=== PATIENT | female | born 1985 | race Asian ===

== ENCOUNTER → 2016-11-07 | Outpatient (CLI) | payer BC ==
[~2016-11-07] MED LIST: BCPILLS PO
== END | disposition home or self-care (01) ==
LOC: C.PAPS 15:38
PROVIDERS: ATTEND Obstetrics & Gynecology
DX: Z01.419 Encounter for gynecological examination (general) (routine) without abnormal findings (principal)

== ENCOUNTER → 2017-11-18 | Outpatient (CLI) | payer BC | END | disposition home or self-care (01) | LOC: C.LAB1850 16:01 | PROVIDERS: ATTEND Obstetrics & Gynecology | DX: Z31.69 Encounter for other general counseling and advice on procreation (principal) ==

== ENCOUNTER → 2017-11-18 | Outpatient (CLI) | payer BC | END | disposition home or self-care (01) | LOC: C.PAPS 10:38 | PROVIDERS: ATTEND Obstetrics & Gynecology | DX: Z01.419 Encounter for gynecological examination (general) (routine) without abnormal findings (principal) ==

== ENCOUNTER 2019-01-21 17:02 | Inpatient (IN) ==
[2019-01-21] MEDS ORDERED: OXYTOCIN 30 UNITS/500 ML BAG IV PRN ×2 (17:26)
--- NOTE | 2019-01-21 17:37 | History & Physical Report ---
Date of Service January 21, 2019 Assessment & Plan (1) SROM (spontaneous rupture of membranes): 33yo at 38.5 weeks GA. SROM. 1. Fetus: Cat 1 2. Labor: PROM. will start oxytocin per protocol. 3. GBS negative. 4. HEP B: Continue home meds 5. Vitals: WNL History of Present Illness Chief Complaint: SROM Primary Care Provider: NO PCP 33 yo at 38.6 weeks GA. Present with LOF. Denied VB, regular ctx. Good FM. course complicated by chronic hep B with 0 viral load, and prior LEEP procedure. Allergies Allergy/AdvReac Type Severity Reaction Status Date / Time No Known Allergies Allergy Unverified 12/15/10 07:20 Home Medications Home Medications Medication Instructions Recorded Confirmed Type Control Pills 1 tab PO DAILY #0 12/15/10 History None (Patient States No Home Meds) #0 12/15/10 History Physical Exam Genitourinary: OB Exam Abdomen: + vertex and + irregular contractions Manual OB Exam: + cervical dilation 2 cm, + cervical effacement 90%, + station - 2 and + amniotic fluid clear OB Exam Monitor Tracing: + external FHT monitor used, + external uterine monitor used and + category I Results & Data Vital Signs (Past 12 Hours) Vital Signs Pulse BP 01/21/19 17:10 79 114/79
[2019-01-21 17:51] LABS: Hematocrit (blood only) 38.3 % (37-47); Hemoglobin 13.6 g/dL (12.0-16.0); Mean Platelet Volume 8.8 fL (7.4-10.4); Platelet Count 279 K/uL (130-400); RDW Coefficient of Variation 13.2 % (11.5-14.5); RDW Standard Deviation 42.1 fL (36.4-46.3); White Blood Count 9.77 K/uL (4.8-10.8)
[2019-01-21] MEDS: LACTATED RINGER'S 1,000 ML IV PRN ×2 (18:07→21:55)
[2019-01-21 18:09] LABS: Mean Corpuscular Hgb Conc 35.5 g/dL (32-36)
--- NOTE | 2019-01-21 19:49 | Anesthesiology Consultation ---
Date of Service January 21, 2019 Assessment & Plan Chart Review Chart Review: Patient NOT seen in Pre Admission Testing and Acceptable Risk for Labor Epidural Consults Requested none ASA ASA2 Proposed Anesthesia Anesthesia Type: Labor Epidural and CSE Risk / Benefits Reviewed With: PT / POA / Parent / Guardian, Accepts Plan and Informed Consent Obtained History Height/Weight Height: 5 ft 2 in Weight: 83.007 kg Allergies Allergy/AdvReac Type Severity Reaction Status Date / Time No Known Allergies Allergy Verified 01/21/19 18:57 Medications Home Medications Medication Instructions Recorded Confirmed Last Taken vit-iron fum-folic ac 1 tab PO DAILY 01/21/19 01/21/19 01/20/19 20:00 [ Vitamin] Active Medications Generic Name Dose Route Start Last Admin Trade Name Freq PRN Reason Stop Dose Admin Lactated Ringer's 1,000 mls @ 125 mls/hr 01/21/19 17:26 01/21/19 18:07 Lr IV 01/23/19 17:25 125 mls/hr .Q8H PRN Administration L&D Protocol Protocol Oxytocin 30 units in 500 mls @ 4 mls/hr 01/21/19 17:26 01/21/19 18:40 Pitocin IV 01/23/19 17:25 0.24 units/hr .Q24H PRN 4 mls/hr Labor Induction/Augmentation Titration Protocol 0.24 UNITS/HR Past Medical History Medical History Asthma Chronic hepatitis B Exercise / Class Metabolic Activity II 4-5 Yardwork/Stairs/Walk up hill Past Surgical History Surgical History Status post wisdom tooth extraction Past Anesthesia History No Hx of Anesthesia Complications and No Family Hx of Anesthesia Complications Social History Smoking Status: Never smoker Do You Dip or Chew Tobacco: No Hx Alcohol Use: No Hx Substance Use: No substance use type: does not use Review of Systems no chest pain or sob Physical Exam Vital Signs Last Vital Signs Temp 36.8 C 01/21/19 17:18 Pulse 61 01/21/19 19:21 Resp 20 01/21/19 17:18 BP 121/78 01/21/19 19:21 ENMT Mouth: no TMJ abnormality Thyromental Distance: > or= 3.5 Finger Breadths Mallampati Class: II Neck normal visual inspection Respiratory normal respiratory effort Auscultation: lungs clear to auscultation bilaterally Cardiovascular Rate/Rhythm: regular rate and regular rhythm Musculoskeletal Spine: normal cervical ROM Neurologic moves all extremities Psychiatric Orientation: alert and oriented x 3
[2019-01-21] MEDS ORDERED: BUTORPHANOL TARTRATE 2 MG/ML VIAL IV PRN (20:23)
[2019-01-21] MEDS: [UNRECOGNIZED DRUG - OTHER] SCH (20:30)
[2019-01-21] MEDS ORDERED: fentaNYL citrate 100 MCG/2 ML VIAL ONE (21:19)
[2019-01-21] MEDS ORDERED: ePHEDrine sulfate 50 MG/ML AMP ONE (21:19)
[2019-01-21] MEDS ORDERED: BUPIVACAINE 0.25% 30 ML VIAL ONE (21:19)
[2019-01-21] MEDS ORDERED: fentaNYL 2MCG/ML ROPIV 1.25MG/ML 100 ML BAG EPI ONE (21:20)
--- NOTE | 2019-01-21 21:50 | Anesthesiology Consultation ---
Date of Service January 21, 2019 Assessment & Plan Chart Review Chart Review: Patient NOT seen in Pre Admission Testing and Acceptable Risk for Labor Epidural Consults Requested none ASA ASA2 Proposed Anesthesia Anesthesia Type: Labor Epidural and CSE Risk / Benefits Reviewed With: PT / POA / Parent / Guardian, Accepts Plan and Informed Consent Obtained History Height/Weight Height: 5 ft 2 in Weight: 83.007 kg Allergies Allergy/AdvReac Type Severity Reaction Status Date / Time No Known Allergies Allergy Verified 01/21/19 18:57 Medications Home Medications Medication Instructions Recorded Confirmed Last Taken vit-iron fum-folic ac 1 tab PO DAILY 01/21/19 01/21/19 01/20/19 20:00 [ Vitamin] tenofovir disoproxil fumarate 300 mg PO DAILY 01/21/19 01/21/19 01/21/19 20:00 Active Medications Generic Name Dose Route Start Last Admin Trade Name Freq PRN Reason Stop Dose Admin Butorphanol Tartrate 1 mg 01/21/19 20:23 01/21/19 20:31 Stadol IV 02/20/19 20:22 1 mg Q2R PRN Administration Pain Lactated Ringer's 1,000 mls @ 125 mls/hr 01/21/19 17:26 01/21/19 18:07 Lr IV 01/23/19 17:25 125 mls/hr .Q8H PRN Administration L&D Protocol Protocol Oxytocin 30 units in 500 mls @ 4 mls/hr 01/21/19 17:26 01/21/19 18:40 Pitocin IV 01/23/19 17:25 0.24 units/hr .Q24H PRN 4 mls/hr Labor Induction/Augmentation Titration Protocol 0.24 UNITS/HR Tenofovir Disoproxil 1 ea 01/21/19 20:00 01/21/19 20:30 : Non-Formulary N/A 02/20/19 19:59 300 mg Patient's Own Med DAILY NITO Administration NPO Date Last Intake of Fluids: 01/21/19 Time Last Intake of Fluids: 20:15 Date Last Intake of Solids: 01/21/19 Time Last Intake of Solids: 16:30 Past Medical History Medical History Asthma Chronic hepatitis B Exercise / Class Metabolic Activity II 4-5 Yardwork/Stairs/Walk up hill Past Surgical History Surgical History Status post wisdom tooth extraction Past Anesthesia History No Hx of Anesthesia Complications and No Family Hx of Anesthesia Complications Social History Smoking Status: Never smoker Do You Dip or Chew Tobacco: No Hx Alcohol Use: No Hx Substance Use: No substance use type: does not use Review of Systems no chest pain or sob Physical Exam Vital Signs Last Vital Signs Temp 36.8 C 01/21/19 21:14 Pulse 65 01/21/19 21:50 Resp 16 01/21/19 21:14 BP 117/76 01/21/19 21:14 Pulse Ox 96 01/21/19 21:50 ENMT Mouth: no TMJ abnormality Thyromental Distance: > or= 3.5 Finger Breadths Mallampati Class: II Neck normal visual inspection Respiratory normal respiratory effort Auscultation: lungs clear to auscultation bilaterally Cardiovascular Rate/Rhythm: regular rate and regular rhythm Musculoskeletal Spine: normal cervical ROM Neurologic moves all extremities Psychiatric Orientation: alert and oriented x 3 Testing Other Testing hgb 13.6 plt 279
[2019-01-21] MEDS ORDERED: NALOXONE HCL 0.4 MG/1 ML VIAL/CARP IV PRN (22:04)
[2019-01-21] MEDS ORDERED: NALBUPHINE HCL INJ 10 MG/ML AMP IV PRN (22:04)
[2019-01-21] MEDS ORDERED: DiphenhydrAMINE HCL 50 MG/ML VIAL IV PRN (22:04)
[2019-01-21] MEDS ORDERED: ONDANSETRON INJ 2 MG/ML 2 ML VIAL IV PRN (22:04)
[2019-01-21] MEDS ORDERED: ePHEDrine sulfate 50 MG/ML AMP IV PRN (22:04)
[2019-01-21] MEDS ORDERED: fentaNYL 2MCG/ML ROPIV 1.25MG/ML 100 ML BAG EPI PRN (22:04)
[2019-01-21] MEDS ORDERED: NALOXONE HCL 1 MG in SODIUM CHLORIDE 0.9% 1000ML 1,000 ML IV PRN (22:04)
[2019-01-22] MEDS ORDERED: SUPERCREAM 0.870% 15 GM JAR EXT PRN (02:59)
[2019-01-22] MEDS ORDERED: DIPHTHERIA/TETANUS/PERTUSSIS 0.5 ML SYR/VIAL IM ONE (02:59)
[2019-01-22] MEDS ORDERED: OXYTOCIN 30 UNITS/500 ML BAG IV PRN (02:59)
[2019-01-22] MEDS ORDERED: BENZOCAINE 20% AER SPR 82.5 GM CAN EXT PRN (02:59)
[2019-01-22] MEDS ORDERED: BISACODYL 10 MG SUPP PR PRN (02:59)
[2019-01-22] MEDS ORDERED: ACETAMINOPHEN 325 MG TAB PO PRN (02:59)
[2019-01-22] MEDS ORDERED: HYDROCORTISONE ACETATE 25 MG SUPP PR PRN (02:59)
[2019-01-22] MEDS ORDERED: IBUPROFEN 600 MG TAB PO PRN (02:59)
[2019-01-22] MEDS: PRENATAL VITAMIN 1 TAB PO SCH (08:46)
[2019-01-22] MEDS: DOCUSATE SODIUM 100 MG CAP PO SCH ×2 (08:46→20:28)
[2019-01-22] MEDS: [UNRECOGNIZED DRUG - OTHER] SCH ×2 (08:47→20:27)
--- NOTE | 2019-01-22 11:03 | Anesthesia Procedure Note ---
Date of Service January 22, 2019 Anesthesia Post Epidural Note Vital Signs Vital Signs: Temp Pulse Resp BP Pulse Ox 98.2 F 82 16 100/59 L 99 01/22/19 07:10 01/22/19 07:10 01/22/19 07:10 01/22/19 07:10 01/22/19 03:00 Pain Intensity Bilateral Abdomen: Pain Intensity: 2 Bilateral Episiotomy/Laceration: Pain Intensity: 2 Notes Mental Status: alert / awake / arousable and participated in evaluation Nausea / Vomiting: adequately controlled Pain: adequately controlled Airway Patency, RR, SpO2: stable & adequate BP & HR: stable & adequate Hydration State: stable & adequate Neuraxial Anesthesia: was administered and sensory block is resolving Anesthetic Complications: no major complications apparent and Pt Satisfied with anesthetic care Epidural: Removed without complications and With tip intact
--- NOTE | 2019-01-23 06:09 | Obstetrical Progress Note ---
Date of Service <Lopez Avelar MD - Last Filed: 01/23/19 06:12> January 23, 2019 Assessment & Plan <Lopez Avelar MD - Last Filed: 01/23/19 06:12> (1) Normal vaginal delivery: Saima is a 33yo who presented with SROM at 38+5 now s/p PPD#1 - GBS negative, Blood type O+, RI - She is Hep B positive, on tenofovir disproxil fumarate 300mg daily. - Feels well today. Eating well, voiding well, ambulating well. - , having some difficulty with latch/feeds but these are improving with time and nurse counseling. - Pain well controlled with ibuprofen 600mg Q4H PRN / APAP. - Routine post- care - After discharge will have [address] Muse. Subjective <Lopez Avelar MD - Last Filed: 01/23/19 06:12> Ambulation: ambulating normally Voiding: no voiding problems Passing Gas:: Yes Diet Tolerance:: regular diet Lochia:: Moderate Feeding Type:: breast feeding (some difficulties with latch, improving and working with nurse) Current Pain Level(1-10): 0 Review of Systems Denies fever, chills, sweats Denies shortness of breath, difficulty breathing, chest pain, palpitations, chest pressure. Denies breast pain. Denies dysuria. Denies headache. Physical Exam <Lopez Avelar MD - Last Filed: 01/23/19 06:12> General: Alert, oriented. No acute distress. Cardiac: Regular rate and rhythm, no murmurs/rubs/gallops. Respiratory: Clear to auscultation anterior and posteriorly, no wheezes/rales/rhonchi. No increased work of breathing. Symmetrical chest rise. No respiratory distress. Abdomen: Soft, nontender, nondistended. Bowel sounds present. Uterus: Uterine fundus firm, palpable 1cm below umbilicus. Lower Extremities: No lower extremity edema or swelling. No deep calf pain. Timoteo's negative bilaterally. Results & Data <Lopez Avelar MD - Last Filed: 01/23/19 06:12> Vital Signs (Past 12 Hours) Vital Signs Temp Pulse Resp BP 01/22/19 23:40 36.7 C 80 18 109/67 01/22/19 19:25 36.8 C 95 H 16 118/78 <Tiff Craig MD, FACOG - Last Filed: 01/23/19 07:48> Co-Signing Physician Notes Resident Physician Supervision Note: I was present with Dr. Avelar during the history and exam. I discussed the case with the resident and agree with the findings and plan as documented in the note. Any exceptions or clarifications are listed here: doing well, . routine care. she will need to followup with her established GI re: hepatitis b. Documented By: Tiff Craig MD, FACOG Resident Activity Tracking <Lopez Avelar MD - Last Filed: 01/23/19 06:12> Resident Involvement: Resident Care Provided Care Provided: Adult Hospital Medicine
[2019-01-23 06:44] LABS: Hematocrit (blood only) 32.9 % (37-47); Hemoglobin 11.2 g/dL (12.0-16.0)
[2019-01-23] MEDS: DOCUSATE SODIUM 100 MG CAP PO SCH ×2 (08:50→20:21)
[2019-01-23] MEDS: PRENATAL VITAMIN 1 TAB PO SCH (08:50)
[2019-01-23] MEDS ORDERED: BISACODYL 5 MG TABEC PO SCH (20:00)
[2019-01-23] MEDS: [UNRECOGNIZED DRUG - OTHER] SCH (20:20)
--- NOTE | 2019-01-24 06:26 | Obstetrical Progress Note ---
Date of Service <Lopez Avelar MD - Last Filed: 01/24/19 06:37> January 24, 2019 Assessment & Plan <Lopez Avelar MD - Last Filed: 01/24/19 06:37> (1) Normal vaginal delivery: Saima is a 33yo who presented with SROM at 38+5 now s/p PPD#2 - GBS negative, Blood type O+, RI - She is Hep B positive, on tenofovir disproxil fumarate 300mg daily. - Feels well today. Eating well, voiding well, ambulating well. - , latching/feeds improved from yesterday - Pain well controlled with ibuprofen 600mg Q4H PRN / APAP. - Routine post- care - After discharge will have [address] Muse. Subjective <Lopez Avelar MD - Last Filed: 01/24/19 06:37> Ambulation: ambulating normally Voiding: no voiding problems Passing Gas:: Yes Diet Tolerance:: regular diet Lochia:: Small Feeding Type:: breast feeding Current Pain Level(1-10): 1 Review of Systems Denies fever, chills, sweats Denies shortness of breath, difficulty breathing, chest pain, palpitations, chest pressure. Denies breast pain. Denies dysuria. Denies headache. Physical Exam <Lopez Avelar MD - Last Filed: 01/24/19 06:37> General: Alert, oriented. No acute distress. Cardiac: Regular rate and rhythm, no murmurs/rubs/gallops. Respiratory: Clear to auscultation anterior and posteriorly, no wheezes/rales/rhonchi. No increased work of breathing. Symmetrical chest rise. No respiratory distress. Abdomen: Soft, nontender, nondistended. Bowel sounds present. Uterus: Uterine fundus firm, palpable 2cm below umbilicus. Lower Extremities: No lower extremity edema or swelling. No deep calf pain. Timoteo's negative bilaterally. Results & Data <Lopez Avelar MD - Last Filed: 01/24/19 06:37> Vital Signs (Past 12 Hours) Vital Signs Temp Pulse Resp BP Pulse Ox 01/24/19 00:10 37.0 C 83 14 114/70 96 01/23/19 20:30 36.9 C 85 16 128/73 97 <Zulay Galindo MD, LIOROG - Last Filed: 01/24/19 07:02> Co-Signing Physician Notes Resident Physician Supervision Note: I was present with Dr. Lopez Avelar PGY1 during the history and exam. I discussed the case with the resident and agree with the findings and plan as documented in the note. Any exceptions or clarifications are listed here: [None] Documented By: Zulay Galindo MD, FACOG Resident Activity Tracking <Lopez Avelar MD - Last Filed: 01/24/19 06:37> Resident Involvement: Resident Care Provided Care Provided: Adult Hospital Medicine
[2019-01-24] MEDS: DOCUSATE SODIUM 100 MG CAP PO SCH (07:56)
[2019-01-24] MEDS: PRENATAL VITAMIN 1 TAB PO SCH (07:56)
--- NOTE | 2019-01-27 10:15 | Delivery Summary ---
DATE OF OPERATION: 01/22/2019 PROCEDURE: Normal spontaneous vaginal delivery. Second-degree perineal laceration repair. SURGEON: Aamir Muse MD PREOPERATIVE DIAGNOSES: 1. Single intrauterine at 38 weeks 6 days gestational age. 2. Spontaneous rupture of membranes. 3. GBS negative. 4. Hepatitis B positive. POSTOPERATIVE DIAGNOSES: Same, status post delivery. ESTIMATED BLOOD LOSS: 300 mL. DRAINS: None. FLUIDS: Continuous lactated Ringer. URINE OUTPUT: Not measured. COMPLICATIONS: None. FINDINGS: Viable with weight pending, Apgars of 8 and 9 at one and five minutes, respectively. INDICATIONS: Saima is a 33-year-old G1, P0, admitted at 38 weeks 5 days gestational age for spontaneous rupture of membranes. Upon presentation, the patient was found to be 2 cm dilated, 90% effaced, -2 station. The patient was started on oxytocin per regular protocol. She received an epidural for anesthesia and progressed in labor without complication. DESCRIPTION OF PROCEDURE: The patient progressed to 10 cm dilated, 100% effaced, +2 to 3 station, pushed over an intact perineum with epidural anesthesia and delivered a viable with weight and Apgars as noted above. The head of the delivered in NURIA position restituted to left transverse. No nuchal cord was noted. Body and shoulders quickly followed. The was noted to be vigorous upon delivery, and a 1-minute delayed cord clamping was initiated. The cord was then double clamped and cut. Cord blood was then obtained. Attention was then turned to deliver the placenta, which was delivered intact with 3-vessel cord with gentle cord traction. Inspection of the perineum, vagina, and cervix noted a second-degree perineal laceration with extension towards the right labia. A traditional crown stitch using 3-0 Vicryl was used to repair the laceration. Needle, sponge, and instrument counts were correct at the completion of the case. Both mother and are stable in the immediate post-delivery period. I attest to the content of the Intraoperative Record and any orders documented therein. Any exception s are noted below.
== END 2019-01-24 13:15 | disposition home or self-care (01) | DRG 806 ==
LOC: 4S1 17:02 → OPB 17:02 → 4S1 17:27 → 4S2 01-22 14:45

== ENCOUNTER 2020-12-04 06:45 | Inpatient (IN) ==
[2020-12-04] MEDS ORDERED: OXYTOCIN 30 UNITS/500 ML BAG IV PRN ×2 (07:35→13:31)
[2020-12-04 08:03] LABS: Hematocrit (blood only) 39.3 % (37-47); Hemoglobin 13.8 g/dL (12.0-16.0); Mean Corpuscular Hemoglobin 31.2 pg (25-34); Mean Corpuscular Hgb Conc 35.1 g/dL (32-36); Mean Corpuscular Volume 88.9 fL (80-100); Mean Platelet Volume 9.1 fL (7.4-10.4); Platelet Count 261 K/uL (130-400); RDW Coefficient of Variation 13.2 % (11.5-14.5); Red Blood Count 4.42 M/uL (4.2-5.4); White Blood Count 11.37 K/uL (4.8-10.8)
[2020-12-04] MEDS: LACTATED RINGER'S 1,000 ML IV PRN ×2 (08:06→10:52)
[2020-12-04] MEDS ORDERED: fentaNYL 2MCG/ML ROPIVACAINE 1.25MG/ML 100 ML BAG EPI ONE (08:30)
[2020-12-04] MEDS ORDERED: SODIUM CHLORIDE 0.9% INJ 10 ML VIAL ONE (08:30)
[2020-12-04] MEDS ORDERED: ePHEDrine sulfate 50 MG/ML AMP ONE (08:30)
[2020-12-04] MEDS ORDERED: BUPIVACAINE 0.25% 30 ML VIAL ONE (08:30)
[2020-12-04] MEDS ORDERED: fentaNYL citrate 100 MCG/2 ML VIAL ONE (08:30)
--- NOTE | 2020-12-04 08:40 | Anesthesiology Consultation ---
Date of Service December 04, 2020 Assessment & Plan (1) Encounter for pre-operative examination: Chart Review Chart Review: Acceptable Risk for Labor Epidural History Height/Weight Height: 5 ft 3 in Weight: 81.647 kg Allergies Allergy/AdvReac Type Severity Reaction Status Date / Time No Known Drug Allergies Allergy Verified 12/02/20 15:13 Medications Home Medications Medication Instructions Recorded Confirmed Last Taken Vitamin 1 tab PO DAILY 01/21/19 12/02/20 01/20/19 20:00 tenofovir disoproxil fumarate 300 mg PO DAILY 01/21/19 12/02/20 01/21/19 20:00 Active Medications Generic Name Dose Route Start Last Admin Trade Name Freq PRN Reason Stop Dose Admin Lactated Ringer's 1,000 mls @ 125 mls/hr 12/04/20 07:35 12/04/20 08:06 Lr IV 12/06/20 07:34 999 mls/hr .Q8H PRN Administration L&D Protocol Protocol Past Medical History Medical History (Updated 12/04/20 @ 08:40 by Felix Stephens MD) Cervical dysplasia ROSSY 3 Chronic hepatitis B Encounter for physical examination related to employment History of cervical dysplasia ROSSY III SROM (spontaneous rupture of membranes) Past Family History Family History Grandmother (Maternal) Ovarian cancer Colorectal cancer Mother Rectal cancer Hypertension Denies family history of Breast cancer Uterine cancer Past Surgical History Surgical History Status post wisdom tooth extraction Social History Smoking Status: Never smoker Hx Alcohol Use: Yes Hx Substance Use: No substance use type: does not use Physical Exam Vital Signs Last Vital Signs Temp 36.9 C 12/04/20 07:42 Pulse 76 12/04/20 07:07 Resp 20 12/04/20 07:42 BP 124/81 12/04/20 07:07 Testing Laboratory Results 12/04/20 07:54
[2020-12-04] MEDS ORDERED: fentaNYL 2MCG/ML ROPIVACAINE 1.25MG/ML 100 ML BAG EPI PRN (09:00)
[2020-12-04] MEDS ORDERED: ePHEDrine sulfate 50 MG/ML AMP IV PRN (09:00)
[2020-12-04] MEDS ORDERED: ONDANSETRON INJ 2 MG/ML 2 ML VIAL IV PRN (09:00)
[2020-12-04] MEDS ORDERED: NALOXONE HCL 0.4 MG/1 ML VIAL/CARP IV PRN (09:00)
[2020-12-04] MEDS ORDERED: NALOXONE HCL 1 MG in SODIUM CHLORIDE 0.9% 1000ML 1,000 ML IV PRN (09:00)
--- NOTE | 2020-12-04 12:43 | Delivery Summary ---
Vaginal Delivery Summary Date of Service December 04, 2020 Vaginal Delivery Summary DIAGNOSES: 1. Willis intrauterine at 39w2d gestation. 2. Spontaneous onset of labor. 3. Group B Streptococcus Neg. 4. Chronic Hepatitis B on tenofovir PROCEDURE: Spontaneous vaginal delivery and repair of first degree laceration. SURGEON: Ivana Fernandez MD. HEAVY EQUIPMENT OPERATING ENGINEER: None. ESTIMATED BLOOD LOSS: 200 mL. COMPLICATIONS: None. PLACENTA: Spontaneous and intact with a 3-vessel cord. DISPOSITION: Stable to labor and delivery. DESCRIPTION: The patient pushed well and brought the head to in OA position. The 's head was allowed to deliver with contraction force and no further active pushing, with the perineum protected during this time. The shoulders delivered easily with a maternal pushing effort. There was no nuchal cord. The right shoulder was anterior. The shoulders and body delivered without any difficulty, and the was placed on the maternal abdomen. It was vigorous and moving all extremities, and making respiratory efforts. The cord was doubly clamped by the MD and then cut by the FOB. The placenta delivered spontaneously and was noted to be intact and with a 3VC. The cervix, vagina and perineum were examined and were found to have a first degree laceration of less than 1cm which was repaired with a single [id number] suture of 3-0 vicryl for cosmesis. The fundus was firm and lochia minimal immediately after delivery. [facility] Vaginal Delivery Charge Vaginal Delivery Codes: 64632 global code for the antepartum, delivery, and post-
[2020-12-04] MEDS ORDERED: IBUPROFEN 600 MG TAB PO PRN (13:31)
[2020-12-04] MEDS ORDERED: ACETAMINOPHEN 325 MG TAB PO PRN (13:31)
[2020-12-04] MEDS ORDERED: HYDROCORTISONE ACETATE 25 MG SUPP PR PRN (13:31)
[2020-12-04] MEDS ORDERED: oxyCODONE/ACETAMINOPHEN 5mg/325mg TAB PO PRN (13:31)
[2020-12-04] MEDS ORDERED: SUPERCREAM 0.870% 15 GM JAR EXT PRN (13:31)
[2020-12-04] MEDS ORDERED: DIPHTHERIA/TETANUS/PERTUSSIS 0.5 ML SYR/VIAL IM ONE (13:31)
[2020-12-04] MEDS ORDERED: BENZOCAINE 20% AER SPR 82.5 GM CAN EXT PRN (13:31)
--- NOTE | 2020-12-04 14:04 | Anesthesia Procedure Note ---
Date of Service December 04, 2020 Anesthesia Post Epidural Note Vital Signs Vital Signs: Temp Pulse Resp BP Pulse Ox 37.0 C 91 H 20 125/65 97 12/04/20 10:50 12/04/20 13:49 12/04/20 10:50 12/04/20 13:49 12/04/20 12:25 Notes Mental Status: alert / awake / arousable and participated in evaluation Nausea / Vomiting: adequately controlled Pain: adequately controlled Airway Patency, RR, SpO2: stable & adequate BP & HR: stable & adequate Hydration State: stable & adequate Neuraxial Anesthesia: was administered and sensory block is resolving Anesthetic Complications: no major complications apparent Epidural: Removed without complications and With tip intact
[2020-12-04] MEDS ORDERED: TENOFOVIR DISOPROXIL FUMARATE PO SCH (21:00)
[2020-12-04] MEDS: DOCUSATE SODIUM 100 MG CAP PO SCH (21:03)
[2020-12-05 06:40] LABS: Hematocrit (blood only) 36.4 % (37-47); Hemoglobin 12.4 g/dL (12.0-16.0)
--- NOTE | 2020-12-05 07:19 | Obstetrical Progress Note ---
Date of Service December 05, 2020 Assessment & Plan (1) state: Ready for d/c today and instructions were therefore reviewed. Will stay until 24hr post delivery. Subjective Ambulation: ambulating normally Voiding: no voiding problems Passing Gas:: Yes Diet Tolerance:: regular diet Lochia:: Small Feeding Type:: breast feeding Physical Exam Constitutional WD/WN, vitals as above Eyes PERRL, conjunctivae normal, anicteric sclerae Neck normal visual inspection Respiratory normal respiratory effort and able to speak in complete sentences; no respiratory distress and no labored breathing Cardiovascular Rate/Rhythm: regular rate and regular rhythm Extremities: no edema Chest (Breasts) Chest: normal inspection of chest Gastrointestinal (Abdomen) Inspection/Auscultation: abdomen normal to inspection Soft, postgravid Psychiatric A+Ox3, euthymic affect Genitourinary OB Exam Abdomen: + fundal height Fundus: + firm and + relation to umbilicus (fundus just below umbilicus); not tender Results & Data ([facility]) Vital Signs (Past 12 Hours) Vital Signs Temp Pulse Resp BP Pulse Ox 12/05/20 04:00 98.1 F 80 18 116/74 12/04/20 23:30 98.4 F 82 18 114/77 12/04/20 19:40 98.6 F 78 18 120/78 97
[2020-12-05] MEDS: DOCUSATE SODIUM 100 MG CAP PO SCH (07:50)
[2020-12-05] MEDS ORDERED: PRENATAL VITAMIN 1 TAB PO SCH (08:00)
== END 2020-12-05 15:55 | disposition home or self-care (01) | DRG 806 ==
LOC: OPB 06:45 → 4S1 06:50 → 4S2 18:16